=== PATIENT | female | born 1970 | race Caucasian/White ===

== ENCOUNTER 2022-12-31 12:20 | Emergency (ER) | payer MEDICARE, OTHER ==
[2022-12-31 12:33] VITALS: BP 141/106
--- NOTE | 2022-12-31 12:38 | ED Physician Documentation ---
PD HPI UPPER EXT INJURY - Stated complaint Stated Complaint: RT SHOULDER PX - Chief complaint Chief Complaint: Ext Problem - History obtained from History obtained from: Patient - History of Present Illness Location: Right, Shoulder Type of injury: Twist (she is in wheelchair and does self transfers WC to chair/recdliner/toilet. She was doing that as usual few days ago and felt onset of some pain in the shoulder. This has continued and worsened, with unable to push herself up or transfer due to the pain.) Where injury occurred: Home Timing - onset: How many days ago (few) Timing - duration: Days (few) Review of Systems Constitutional: denies: Fever, Chills Skin: denies: Rash, Lesions Neurologic: denies: Focal weakness, Numbness PD PAST MEDICAL HISTORY - Past Medical History Past Medical History: Yes Cardiovascular: Hypertension Respiratory: None Neuro: Other Endocrine/Autoimmune: None GI: [employer]: None : Indwelling catheter HEENT: None Psych: None Musculoskeletal: Other Derm: None Other Past Medical History: spina bifida. tethered cord syndrome - Present Medications Home Medications: Ambulatory Orders Medication Instructions Recorded Confirmed Gabapentin [Neurontin] 300 mg PO BID 12/31/22 12/31/22 Lisinopril [Zestril] 20 mg PO DAILY 12/31/22 12/31/22 Meloxicam [Mobic] 7.5 mg PO BID 10 Days #20 tablet 12/31/22 Morphine Ir [Ms Ir] 7.5 mg PO Q8H PRN #6 tablet 12/31/22 Omeprazole 40 mg PO DAILY 12/31/22 12/31/22 Ondansetron Odt [Zofran Odt] 4 mg TL Q6H PRN 12/31/22 12/31/22 Tolterodine Tartrate [Detrol LA] 4 mg PO DAILY 12/31/22 12/31/22 traMADol [Ultram] 50 mg PO Q4-6H PRN 12/31/22 12/31/22 traMADol [Ultram] 50 mg PO Q8H PRN #25 tablet 12/31/22 - Allergies Allergies/Adverse Reactions: Allergies Allergy/AdvReac Type Severity Reaction Status Date / Time promethazine [From Phenergan] Allergy Anxiety Verified 12/31/22 12:25 codeine AdvReac Respiratory Verified 12/31/22 12:25 - Social History Does the pt smoke?: No Smoking Status: Never smoker - Immunizations Immunizations are current?: Yes PD ED PE NORMAL - Vitals Vital signs reviewed: Yes - General General: Alert and oriented X 3, No acute distress, Well developed/nourished - Neck Neck: Supple, no meningeal sign, No bony TTP - Cardiac Cardiac: RRR, No murmur - Respiratory Respiratory: Clear bilaterally - Extremities Extremities: Other (right shoulder tender aty AC area and posterior shoulder. Tender to suprascapular area without redness/rash/sores. Able to abduct to 90 degrees but painful. Rotator cuff movements are doable, but pain most with internal rotation, abduction and extension. ) - Neuro Neuro: Alert and oriented X 3, No motor deficit, No sensory deficit, Normal speech Results - Vitals Vitals: Vital Signs - 24 hr 12/31/22 12:27 Temperature 36.6 C Heart Rate 111 H Respiratory 20 Rate Blood Pressure 141/106 H O2 Saturation 97 Oxygen O2 Source Room air - Rads (name of study) right shoulder Relevant Findings:: Prelim report reviewed (no acute findings. ), EMP independent interpretation of test (arthritic changes, no fractures), See rad report PD Medical Decision Making - ED course Complexity details: reviewed results (shoulder xray without acute bony abnormalities. ), considered differential (did not have abrupt pain but gradually hurting more after pushing herself up to transfer from chair to chair. Has had pain in shoulder enough to inhibit usual trasnfers. ), d/w patient ED course: uses right arm in particular for transfer and most common use. Symptoms and exam most c/w some rotator cuff tendonitis as gradual onset and still present. No rash. No arm edema. Will have her take NSAIDs and then Tylenol, with addition of pain meds PRN short term, as she does need to be able to transfer herself/etc. so needs enough pain reduction that she can use the shoulder. Departure - Departure Disposition: 01 Home, Self Care Clinical Impression: Right shoulder tendonitis Condition: Stable Record reviewed to determine appropriate education?: Yes Instructions: ED Tendinitis Rotator Cuff Follow-Up: Lashon Mancilla MD [Primary Care Provider] - [facility] [Provider Group] Prescriptions: Meloxicam [Mobic] 7.5 mg PO BID 10 Days #20 tablet Morphine Ir [Ms Ir] 7.5 mg PO Q8H PRN #6 tablet PRN Reason: Pain >8 traMADol [Ultram] 50 mg PO Q8H PRN #25 tablet PRN Reason: Pain 5-7 Comments: Your x-ray appears normal without any signs of notable arthritis except slightly at the AC joint and certainly no occult fractures or dislocations. Your symptoms sound suggestive of a rotator cuff tendinitis. I would treat this with some anti-inflammatories daily for the next week or so in combination with less use of the shoulder. To that add Tylenol every 4-6 hours if needed for pain and consider using Tylenol regularly 4 times a day for the next week. To that add your tramadol half to 1 tablet as needed for medium pain. I also prescribed the morphine tablet to use for more severe pain particularly at night etc. I sent these to the [facility] pharmacy. Follow-up with your new primary care Dr. Mancilla as planned. She could potentially institute some physical therapy. You could also follow-up with orthopedic clinic for other treatment options or ideas if not better over the next week. Shantel most likely to think this will improve over the next week or 2 back to your baseline. I am prescribing a short course of narcotic pain medication for you. These are potentially dangerous and addictive medications that should be used carefully. These medications may constipate you. Take an csyj-sbk-uersfin stool softener such as docusate twice daily with plenty of water while taking these medications. If you go 24 hours without a bowel movement, take zqok-ljh-[id number] MiraLAX, per package instructions. Do not drink or drive while taking these medications. If you received narcotic or sedating medications while in the emergency department do not drive for 24 hours. Store this medication in a safe, secure place and out of reach of children. It is a violation of federal law to give or sell this medication to another person or to use in a manner other than prescribed. The ED will not refill narcotic prescriptions, including prescriptions lost or stolen. You can dispose of unwanted medications at the [facility]'s office or at several pharmacies such as [facility]. Discharge Date/Time: 12/31/22 14:50
--- NOTE | 2022-12-31 14:08 | XRAY Report ---
PROCEDURE: Shoulder 3 View RT INDICATIONS: shoulder pain after pushing herself up TECHNIQUE: 3 views of the shoulder were acquired. COMPARISON: None. FINDINGS: Bones: No fractures or dislocations. No suspicious bony lesions. Visualized ribs appear intact. Soft tissues: No suspicious soft tissue calcifications. IMPRESSION: No visualized acute fracture or dislocation. However, occult injury cannot be excluded. Recommend mary alice rt interval imaging follow-up in 7-10 days as clinically indicated for additional evaluation. Reviewed by: Luna Alicia MD on 12/31/2022 2:07 PM PDT Approved by: Luna Alicia MD on 12/31/2022 2:07 PM PDT Station ID: [id number]
== END 2022-12-31 14:50 | disposition home or self-care (01) ==
LOC: ED 12:20
DX: M77.8 Other enthesopathies, not elsewhere classified (principal)
CPT/HCPCS: 99283; 99284

== ENCOUNTER 2023-02-11 08:00 | Outpatient (CLI) | payer MEDICARE, OTHER ==
--- NOTE | 2023-02-11 15:14 | XRAY Report ---
PROCEDURE: Shoulder 3 View BILAT INDICATIONS: BILAT SHOULDER PAIN TECHNIQUE: 8 views of the shoulder were acquired. COMPARISON: Right shoulder x-ray 12/31/2022 FINDINGS: Bones: No fractures or dislocations. No suspicious bony lesions. Visualized ribs appear intact. De generative changes of the left glenohumeral joint with moderate joint space narrowing, subchondral sc lerosis and osteophyte formation. Mild degenerative changes of the right glenohumeral joint. Soft tissues: No suspicious soft tissue calcifications. IMPRESSION: Moderate degenerative changes of the left and mild degenerative changes of the right glenohumeral noemí nts. No acute fracture or dislocation. Reviewed by: Maxi Ruelas MD on 02/11/2023 3:12 PM PDT Approved by: Maxi Ruelas MD on 02/11/2023 3:12 PM PDT Station ID: [id number]
== END 2023-02-11 23:59 | disposition home or self-care (01) ==
LOC: DI.WOS 08:00
PROVIDERS: ATTEND Physician Assistant Surgical
DX: M19.012 Primary osteoarthritis, left shoulder (principal); M19.011 Primary osteoarthritis, right shoulder

== ENCOUNTER 2023-05-08 15:14 | Outpatient (CLI) | payer MEDICARE, OTHER ==
--- NOTE | 2023-05-08 21:36 | DEXA Report ---
PROCEDURE: Dexa Forearm INDICATIONS: POST MENOPAUSAL TECHNIQUE: Dual energy x-ray absorptiometry (DXA) was performed on a [employer] System. Regions measur ed are the left forearm due to prior back and hip surgeries. COMPARISON: None FINDINGS: Left Forearm: Bone Mineral Density 0.876 g/cm/cm, T score -0.1. (T score greater or equal to -1.0: NORMAL) (T score from -1.1 to -2.4: OSTEOPENIA) (T score less than or equal to -2.5 to: OSTEOPOROSIS) Impression: By WHO criteria, this patient has normal bone density. Patients with diagnosis of osteoporosis or osteopenia should have regular bone mineral density assess ment. For those eligible for Medicare, routine testing is allowed once every 2 years. Testing frequ ency can be increased for patients who have rapidly progressing disease or for those who are receivin g medical therapy to restore bone mass. Reviewed by: Ahsan Eid MD on 05/08/2023 9:35 PM PDT Approved by: Ahsan Eid MD on 05/08/2023 9:35 PM PDT Station ID: [id number]
== END 2023-05-08 15:15 | disposition home or self-care (01) ==
LOC: DI 15:14
PROVIDERS: ATTEND Internal Medicine
DX: Z78.0 Asymptomatic menopausal state (principal)

== ENCOUNTER 2023-08-28 12:49 | Outpatient (CLI) | payer MEDICARE, OTHER ==
[2023-08-28 13:29] LABS: CRP - C-REACTIVE PROTEIN 1.8 mg/dL (<0.5); URIC ACID 4.5 mg/dL (2.3-6.6)
[2023-08-28 13:42] LABS: RHEUMATOID FACTOR NEGATIVE (Negative)
--- NOTE | 2023-08-28 16:22 | XRAY Report ---
PROCEDURE: Wrist 3+V LT INDICATIONS: ARTHRALGIA TECHNIQUE: 3 views of the wrist were acquired. COMPARISON: X-ray hand 08/28/2023. FINDINGS: Bones: No fractures or dislocations. No suspicious bony lesions. Questionable minimal first CMC a nd radiocarpal narrowing. No erosions or periarticular osteophytes. Soft tissues: No suspicious soft tissue calcifications or masses. IMPRESSION: Questionable minimal first CMC and radiocarpal degenerative change. Reviewed by: Luna Alicia MD on 08/28/2023 4:21 PM PST Approved by: Luna Alicia MD on 08/28/2023 4:21 PM PST Station ID: [id number]
--- NOTE | 2023-08-28 16:22 | XRAY Report ---
PROCEDURE: Hand 3+V LT INDICATIONS: ARTHRALGIA TECHNIQUE: 3 views of the hand(s) acquired. COMPARISON: X-ray wrist 08/28/2023 FINDINGS: Bones: No fractures or dislocations. No suspicious bony lesions. Questionable very minimal scatte red IP degenerative narrowing. No erosions or periarticular osteophytes Soft tissues: No suspicious soft tissue calcifications or masses. IMPRESSION: Questionable very minimal early degenerative change. Reviewed by: Luna Alicia MD on 08/28/2023 4:20 PM PST Approved by: Luna Alicia MD on 08/28/2023 4:20 PM PST Station ID: [id number]
[2023-08-30 14:09] LABS: CYCLIC CITRULLINATED PEP IGG/A 5 units (0-19)
[2023-08-30 19:07] LABS: ANTINUCLEAR ANTIBODIES IFA Negative (.)
== END 2023-08-28 12:50 | disposition home or self-care (01) ==
LOC: LAB 12:49
PROVIDERS: ATTEND Internal Medicine
DX: M25.50 Pain in unspecified joint (principal); M25.60 Stiffness of unspecified joint, not elsewhere classified
CPT/HCPCS: 36415; 84550; 85651; 86038; 86140; 86200; 86430

== ENCOUNTER 2023-10-07 08:00 | Outpatient (CLI) | payer MEDICARE, OTHER ==
--- NOTE | 2023-10-09 09:36 | XRAY Report ---
PROCEDURE: Wrist 3 View RT INDICATIONS: RIGHT WRIST PAIN TECHNIQUE: 3 views of the wrist were acquired. COMPARISON: None. FINDINGS: Bones: No fractures or dislocations. No suspicious bony lesions. Ulnar negative variant. Osteoarthr itic changes, most pronounced and moderate at the first carpal metacarpal joint. Soft tissues: No suspicious soft tissue calcifications or masses. IMPRESSION: 1. No acute bony abnormality. 2. Moderate osteoarthritis. 3. Ulnar negative variant. Reviewed by: Skye Vasquez MD on 10/09/2023 9:34 AM PDT Approved by: Skye Vasquez MD on 10/09/2023 9:34 AM PDT Station ID: [id number]
== END 2023-10-07 23:59 | disposition home or self-care (01) ==
LOC: DI.WOS 08:00
PROVIDERS: ATTEND Physician Assistant Surgical
DX: M19.031 Primary osteoarthritis, right wrist (principal)

== ENCOUNTER 2023-10-18 12:54 | Outpatient (CLI) | payer MEDICARE, OTHER ==
[2023-10-19 19:07] LABS: CYCLIC CITRULLINATED PEP IGG/A 0 units (0-19)
== END 2023-10-18 12:55 | disposition home or self-care (01) ==
LOC: LAB 12:54
PROVIDERS: ATTEND Physician Assistant Surgical
DX: M25.531 Pain in right wrist (principal)
CPT/HCPCS: 36415; 86200; 86225

== ENCOUNTER → 2023-11-20 | Outpatient (CLI) | payer MEDICARE, OTHER | LOC: PC 08:00 | PROVIDERS: ATTEND Nurse Practitioner Gerontology | DX: Z51.5 Encounter for palliative care (principal); N32.89 Other specified disorders of bladder; K59.04 Chronic idiopathic constipation; Z96.0 Presence of urogenital implants; R00.8 Other abnormalities of heart beat; Q05.9 Spina bifida, unspecified; Q06.8 Other specified congenital malformations of spinal cord; M25.519 Pain in unspecified shoulder | CPT/HCPCS: 99345; G0318; 99417 ==

== ENCOUNTER 2023-11-28 11:45 | Outpatient (CLI) | payer MEDICARE, OTHER ==
[2023-11-28 12:07] LABS: BASOPHILS % (AUTO) 0.5 %; EOSINOPHILS # (AUTO) 0.2 10^3/uL (0.0-0.7); EOSINOPHILS % (AUTO) 3.4 %; HCT - HEMATOCRIT 34.5 % (37.0-47.0); HGB - HEMOGLOBIN 10.2 g/dL (12.0-16.0); LYMPHOCYTES # (AUTO) 1.7 10^3/uL (1.5-3.5); LYMPHOCYTES % (AUTO) 25.7 %; MEAN CORPUSCULAR HEMOGLOBIN 24.8 pg (27.0-31.0); MEAN CORPUSCULAR HGB CONC 29.6 g/dL (32.0-36.0); MEAN CORPUSCULAR VOLUME 83.9 fL (81.0-99.0); MEAN PLATELET VOLUME 8.9 fL (7.9-10.8); MONOCYTES # (AUTO) 0.3 10^3/uL (0.0-1.0); NEUTROPHILS # (AUTO) 4.3 10^3/uL (1.5-6.6); NEUTROPHILS % (AUTO) 66.1 %; PLT - PLATELET COUNT 329 10^3/uL (130-450); RED BLOOD COUNT 4.11 10^6/uL (4.20-5.40); RED CELL DISTRIBUTION WIDTH 15.9 % (12.0-15.0); WHITE BLOOD COUNT 6.5 x10^3/uL (4.8-10.8)
[2023-11-28 12:36] LABS: THYROID STIMULATING HORMONE 2.17 uIU/mL (0.34-5.60)
[2023-11-28 12:38] LABS: % IRON SATURATION 10 % (20-50); ALBUMIN/GLOBULIN RATIO 1.1 (1.0-2.2); ALKALINE PHOSPHATASE 69 IU/L (42-121); ALT ALANINE AMINOTRANSFERASE 12 IU/L (10-60); AST ASPARTATE AMINOTRANSFERASE 12 IU/L (10-42); BILIRUBIN,TOTAL 0.2 mg/dL (0.2-1.0); BUN - BLOOD UREA NITROGEN 15 mg/dL (6-20); CALCIUM 9.5 mg/dL (8.5-10.3); CARBON DIOXIDE - CO2 26 mmol/L (21-32); CHLORIDE 103 mmol/L (101-111); CHOL/HDL RATIO 3.1 (<4.4); CHOLESTEROL 195 mg/dL; CREATININE 0.6 mg/dL (0.6-1.3); GFR - MDRD 104 (>89); GLUCOSE 121 mg/dL (74-104); HDL CHOLESTEROL 62 mg/dL; IRON 40 ug/dL (50-212); LDL CHOLESTEROL,CALCULATED 108 mg/dL; LDL/HDL RATIO 1.7 (<4.4); SODIUM 138 mmol/L (135-145); TOTAL IRON BINDING CAPACITY 416 ug/dL (250-450); TOTAL PROTEIN 7.7 g/dL (6.4-8.9); TRANSFERRIN 297 mg/dL (203-362); TRIGLYCERIDES 123 mg/dL (48-352); VLDL CHOLESTEROL 25 mg/dL
[2023-11-28 12:40] LABS: ESTIMATED AVERAGE GLUCOSE 126 mg/dL (70-100)
[2023-11-28 12:43] LABS: FERRITIN 8.2 ng/mL (11.0-306.8)
== END 2023-11-28 11:46 | disposition home or self-care (01) ==
LOC: LAB 11:45
PROVIDERS: ATTEND Nurse Practitioner Gerontology
DX: Z00.00 Encounter for general adult medical examination without abnormal findings (principal); Q05.9 Spina bifida, unspecified; M25.519 Pain in unspecified shoulder; Z79.899 Other long term (current) drug therapy
CPT/HCPCS: 36415; 80053; 80061; 82607; 82728; 82746; 83036; 83540; 83721; 84443; 84466; 85025

== ENCOUNTER 2023-12-05 14:30 | Outpatient (CLI) | payer MEDICARE, OTHER | END 2023-12-05 23:59 | disposition home or self-care (01) | LOC: PC 14:30 | PROVIDERS: ATTEND Nurse Practitioner Gerontology | DX: Z51.5 Encounter for palliative care (principal); Q05.9 Spina bifida, unspecified; D17.79 Benign lipomatous neoplasm of other sites; E66.01 Morbid (severe) obesity due to excess calories; T83.511A Infection and inflammatory reaction due to indwelling urethral catheter, initial encounter; N39.0 Urinary tract infection, site not specified; N32.89 Other specified disorders of bladder; N31.9 Neuromuscular dysfunction of bladder, unspecified; G89.29 Other chronic pain; R39.89 Other symptoms and signs involving the genitourinary system; K59.00 Constipation, unspecified; R73.03 Prediabetes; Z68.43 Body mass index [BMI] 50.0-59.9, adult; Z79.85 Long-term (current) use of injectable non-insulin antidiabetic drugs; Z79.899 Other long term (current) drug therapy; Z91.89 Other specified personal risk factors, not elsewhere classified | CPT/HCPCS: 99350 ==

== ENCOUNTER 2023-12-13 08:00 | Outpatient (CLI) | payer MEDICARE, OTHER | END 2023-12-13 23:59 | disposition home or self-care (01) | LOC: PC 08:00 | PROVIDERS: ATTEND Nurse Practitioner Gerontology | DX: Z51.5 Encounter for palliative care (principal); Q05.9 Spina bifida, unspecified | CPT/HCPCS: 99426 ==

== ENCOUNTER 2023-12-24 08:00 | Outpatient (CLI) | payer MEDICARE, OTHER | END 2023-12-24 23:59 | disposition home or self-care (01) | LOC: PC 08:00 | PROVIDERS: ATTEND Nurse Practitioner Gerontology | DX: Z51.5 Encounter for palliative care (principal); Q05.9 Spina bifida, unspecified; K59.04 Chronic idiopathic constipation; E66.01 Morbid (severe) obesity due to excess calories; R73.03 Prediabetes; Z79.85 Long-term (current) use of injectable non-insulin antidiabetic drugs; Z79.899 Other long term (current) drug therapy; R00.0 Tachycardia, unspecified; Z99.3 Dependence on wheelchair; Z71.89 Other specified counseling | CPT/HCPCS: 99215 ==

== ENCOUNTER 2024-01-27 13:35 | Outpatient (CLI) | payer MEDICARE, OTHER ==
--- NOTE | 2024-01-27 15:56 | XRAY Report ---
PROCEDURE: Shoulder 2+V BL INDICATIONS: SHOULDER PAIN TECHNIQUE: 8 views of the shoulder were acquired. COMPARISON: 02/11/2023. FINDINGS: Bones: No fractures or dislocations. No suspicious bony lesions. Visualized ribs appear intact. Soft tissues: No suspicious soft tissue calcifications. Calcification adjacent to the left greater trochanter. The visualized lungs are within normal limits. IMPRESSION: 1.No acute bony abnormality. 2.Severe acromioclavicular moderate glenohumeral joint degeneration bilaterally. 3.Possible calcific tendinopathy of the right shoulder. Reviewed by: Maxi Ruelas MD on 01/27/2024 3:55 PM PDT Approved by: Maxi Ruelas MD on 01/27/2024 3:55 PM PDT Station ID: [id number]
== END 2024-01-27 13:36 | disposition home or self-care (01) ==
LOC: DI 13:35
PROVIDERS: ATTEND Physician Assistant Surgical
DX: M19.011 Primary osteoarthritis, right shoulder (principal); M19.012 Primary osteoarthritis, left shoulder

== ENCOUNTER 2024-02-11 08:00 | Outpatient (CLI) | payer MEDICARE, OTHER | END 2024-02-11 23:59 | disposition home or self-care (01) | LOC: PC 08:00 | PROVIDERS: ATTEND Nurse Practitioner Gerontology | DX: Z51.5 Encounter for palliative care (principal); Q07.01 Arnold-Chiari syndrome with spina bifida; E66.01 Morbid (severe) obesity due to excess calories; G62.9 Polyneuropathy, unspecified; Z79.899 Other long term (current) drug therapy; Z99.3 Dependence on wheelchair; Z80.3 Family history of malignant neoplasm of breast; Z71.89 Other specified counseling; M19.012 Primary osteoarthritis, left shoulder | CPT/HCPCS: 99350 ==

== ENCOUNTER 2024-02-12 08:00 | Outpatient (CLI) | payer MEDICARE, OTHER | END 2024-02-12 23:59 | disposition home or self-care (01) | LOC: PC 08:00 | PROVIDERS: ATTEND Nurse Practitioner Gerontology | DX: Z51.5 Encounter for palliative care (principal); Q05.9 Spina bifida, unspecified | CPT/HCPCS: 99426 ==

== ENCOUNTER 2024-03-12 08:00 | Outpatient (CLI) | payer MEDICARE, OTHER | END 2024-03-12 23:59 | disposition home or self-care (01) | LOC: PC 08:00 | PROVIDERS: ATTEND Nurse Practitioner Gerontology | DX: Z51.5 Encounter for palliative care (principal); Z12.31 Encounter for screening mammogram for malignant neoplasm of breast; E66.01 Morbid (severe) obesity due to excess calories; I47.10 Supraventricular tachycardia, unspecified; R73.03 Prediabetes | CPT/HCPCS: 99350 ==